=== PATIENT | female | born 1950 | race Caucasian/White ===

== ENCOUNTER 2018-05-18 10:31 | Outpatient (CLI) | payer MEDICARE, MEDICAID | END 2018-05-18 10:32 | disposition home or self-care (01) | LOC: BICMAMMO 10:31 | PROVIDERS: ATTEND Student in an Organized Health Care Education/Training Program | DX: Z12.31 Encounter for screening mammogram for malignant neoplasm of breast (principal); R92.1 Mammographic calcification found on diagnostic imaging of breast | CPT/HCPCS: 77063; 77067 ==

== ENCOUNTER 2020-03-08 14:56 | Outpatient (CLI) | payer MEDICARE ==
--- NOTE | 2020-03-08 15:54 | BD ---
EXAM: Bone densitometry using DEXA HISTORY: 69 yo female. Screening for postmenopausal osteoporosis FINDINGS: L1--bone mineral density 0.841 g/sq cm; T score -1.4 ; Z score 0.4 L2--bone mineral density 0.920 g/sq cm; T score -1.0 ; Z score 1.0 L3--bone mineral density 0.881 g/sq cm; T score -1.8 ; Z score 0.2 L4--bone mineral density 1.115 g/sq cm; T score 0.5 ; Z score 2.6 Total L1-L4--bone mineral density 0.944 g/sq cm; T score -0.9 ; Z score 1.1 Left femoral neck--bone mineral density0.797; T score -0.5 ; Z score 1.2 Total proximal left femur--bone mineral density 1.042; T score 0.8 ; Z score 2.2 IMPRESSION: Normal BMD
--- NOTE | 2020-03-08 16:50 | MMO ---
Bilateral MAMMO Bilat Screen [facility]. CLINICAL HISTORY: Patient is 69 years old and is seen for screening. The patient has no family history of breast cancer. The patient has no personal history of cancer. VIEWS: The views performed were: bilateral craniocaudal with tomosynthesis and bilateral mediolateral oblique with tomosynthesis. FILMS COMPARED: The present examination has been compared to prior imaging studies performed at [facility] on 08/31/2013 and 05/18/2018, and at [facility] on 09/26/2009 and 09/27/2010. This study has been interpreted with the assistance of computer-aided detection. MAMMOGRAM FINDINGS: There are scattered fibroglandular densities. Benign calcifications are noted bilaterally. There are no suspicious masses, suspicious calcifications, or new areas of architectural distortion. IMPRESSION: THERE IS NO MAMMOGRAPHIC EVIDENCE OF MALIGNANCY. A ROUTINE FOLLOW-UP MAMMOGRAM IN 1 YEAR IS RECOMMENDED. THE RESULTS OF THIS EXAM WERE SENT TO THE PATIENT. ACR BI-RADS Category 2 - Benign finding MAMMOGRAPHY NOTE: 1. A negative mammogram report should not delay a biopsy if a dominant of clinically suspicious mass is present. 2. Approximately 10% to 15% of breast cancers are not detected by mammography. 3. Adenosis and dense breasts may obscure an underlying neoplasm. Reported by: MELIZA SPRINGER MD Electonically Signed: [id number]
== END 2020-03-08 14:57 | disposition home or self-care (01) ==
LOC: BICMAMMO 14:56
PROVIDERS: ATTEND Family Medicine
DX: Z12.31 Encounter for screening mammogram for malignant neoplasm of breast (principal); Z13.820 Encounter for screening for osteoporosis; Z78.0 Asymptomatic menopausal state
CPT/HCPCS: 77063; 77067; 77080

== ENCOUNTER 2021-12-12 13:02 | Outpatient (CLI) | payer MEDICARE | END 2021-12-12 13:03 | disposition home or self-care (01) | LOC: BICMAMMO 13:02 | PROVIDERS: ATTEND Family Medicine | DX: Z12.31 Encounter for screening mammogram for malignant neoplasm of breast (principal) | CPT/HCPCS: 77063; 77067 ==